=== PATIENT | male | born 1965 | race Caucasian/White ===

== ENCOUNTER 2021-08-22 04:18 | Emergency (ER) | payer OTHER ==
[~2021-08-22] VITALS: Ht 182.9 cm; Wt 81.7 kg
[2021-08-22 05:04] LABS: ABSOLUTE EOSINOPHILS 0.2 thou/uL (0.0-0.7); ABSOLUTE LYMPHOCYTES 1.1 thou/uL (0.8-5.3); ABSOLUTE MONOCYTES 0.7 thou/uL (0.0-1.2); ABSOLUTE NEUTROPHILS 3.8 thou/uL (1.6-8.1); BASOPHILS 0.7 %; EOSINOPHILS 3.6 %; HEMATOCRIT 46.1 % (42.0-52.0); HEMOGLOBIN 15.6 gm/dL (14.0-18.0); LYMPHOCYTES 19.3 %; MCH 28.5 pg (26.0-34.0); MCHC 33.7 g/dL (28.0-37.0); MCV 84.4 fL (80.0-100.0); MONOCYTES 12.3 %; MPV 9.6 fl. (7.2-11.1); NUCLEATED RBCS 0 /100WBC; PLATELET COUNT* 141 thou/uL (150-400); POLYS 64.1 %; RBC 5.47 mil/uL (4.50-6.00); RDW-CV 14.8 % (10.5-14.5); WBC 5.9 thou/uL (4.0-11.0)
[2021-08-22 05:04] LABS: URINE BILIRUBIN NEGATIVE (Negative); URINE BLOOD NEGATIVE (Negative); URINE CLARITY CLEAR; URINE COLOR YELLOW; URINE GLUCOSE-RANDOM NEGATIVE (Negative); URINE KETONES NEGATIVE (Negative); URINE LEUKOCYTES-REFLEX NEGATIVE (Negative); URINE NITRITE-REFLEX NEGATIVE (Negative); URINE PROTEIN NEGATIVE (Negative); URINE SPECIFIC GRAVITY 1.025 (1.005-1.030); URINE UROBILINOGEN 0.2 E.U./dl (0.2-1.0)
[2021-08-22 05:09] LABS: CALCIUM 8.3 mg/dL (8.5-10.1); CREATININE 0.8 mg/dL (0.6-1.3)
[2021-08-22 05:10] LABS: AMP/METHAMP POSITIVE (Negative); BARBITURATES Negative (Negative); BENZODIAZEPINES Negative (Negative); COCAINE Negative (Negative); METHADONE Negative (Negative); OPIATES Negative (Negative); PCP Negative (Negative); THC POSITIVE (Negative)
[2021-08-22 05:14] LABS: ALBUMIN 3.3 g/dL (3.4-5.0); TOTAL BILIRUBIN 0.3 mg/dL (<0.1-1.0)
[2021-08-22 05:36] LABS: INFLUENZA A ANTIGEN Negative (Negative); INFLUENZA B ANTIGEN Negative (Negative)
[2021-08-22] MEDS ORDERED: PROAIR HFA8.5 GM INH (05:59)
[2021-08-22] MEDS ORDERED: ZOFRAN ODT4 MG PO (05:59)
[2021-08-22 06:11] VITALS: BP 137/89
--- NOTE | 2021-08-23 14:43 | EKG ---
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
== END 2021-08-22 06:12 | disposition home or self-care (01) ==
LOC: M.ERS 04:18
PROVIDERS: Emergency Medicine
DX: U07.1 COVID-19 (principal); I50.9 Heart failure, unspecified; F17.210 Nicotine dependence, cigarettes, uncomplicated

== ENCOUNTER 2021-08-24 19:05 | Emergency (ER) | payer OTHER ==
[~2021-08-24] VITALS: Ht 182.9 cm; Wt 81.7 kg
[~2021-08-24 19:05] MED LIST: PROAIR HFA8.5 GM INH; ZOFRAN ODT4 MG PO
[2021-08-24 19:28] LABS: ABSOLUTE EOSINOPHILS 0.1 thou/uL (0.0-0.7); ABSOLUTE LYMPHOCYTES 1.7 thou/uL (0.8-5.3); ABSOLUTE MONOCYTES 0.7 thou/uL (0.0-1.2); BASOPHILS 0.9 %; EOSINOPHILS 1.8 %; HEMATOCRIT 48.9 % (42.0-52.0); HEMOGLOBIN 16.7 gm/dL (14.0-18.0); LYMPHOCYTES 30.3 %; MCH 28.7 pg (26.0-34.0); MCHC 34.2 g/dL (28.0-37.0); MONOCYTES 12.5 %; MPV 9.3 fl. (7.2-11.1); NUCLEATED RBCS 0 /100WBC; PLATELET COUNT* 170 thou/uL (150-400); POLYS 54.5 %; RBC 5.83 mil/uL (4.50-6.00); RDW-CV 14.5 % (10.5-14.5); WBC 5.5 thou/uL (4.0-11.0)
[2021-08-24 19:36] LABS: CALCIUM 8.8 mg/dL (8.5-10.1); POTASSIUM 3.9 mmol/L (3.5-5.1)
[2021-08-24 19:40] LABS: ALBUMIN 3.8 g/dL (3.4-5.0); TOTAL BILIRUBIN 0.5 mg/dL (<0.1-1.0); TOTAL PROTEIN 8.8 g/dL (6.4-8.2)
[2021-08-24 22:28] VITALS: BP 151/99
--- NOTE | 2021-08-25 14:35 | EKG ---
[place] [address] ELECTROCARDIOGRAM REPORT Name: JEFFYOLAF Room: 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: : 1965 Requested By: Maritza Jay Order Number: [id number] MD: Olaf Bolaños Measurements Intervals [place] Rate: 69 P: 73 HI: 121 QRS: 82 QRSD: 80 T: 48 QT: 437 QTc: 469 Interpretive Statements Sinus rhythm Consider left ventricular hypertrophy Compared to ECG 08/22/2021 04:18:42 No significant changes Electronically Signed On 08-25-2021 14:34:48 CDT by Olaf Bolaños [email or web address] <ELECTRONICALLY SIGNED> By: Olaf Bolaños MD, [facility] 08/25/21 1434 46 46 Olaf Bolaños MD, [facility] /EPI
== END 2021-08-24 22:28 | disposition home or self-care (01) ==
LOC: M.ERS 19:05
PROVIDERS: Emergency Medicine
DX: G44.89 Other headache syndrome (principal); I50.9 Heart failure, unspecified